=== PATIENT | male | born 1985 | race Caucasian/White ===

== ENCOUNTER 2020-09-18 14:10 | Emergency (ER) | payer BC ==
[2020-09-18] MEDS: Ketorolac 60 MG/2 ML SDV IM ONE (15:13)
[2020-09-18] MEDS: Orphenadrine 60 MG/2 ML Inj IM ONE (15:14)
--- NOTE | 2020-09-18 15:27 | EDM.PDOC ---
ED HPI GENERAL MEDICAL PROBLEM - General Chief Complaint: General Stated Complaint: Lower back pain Time Seen by Provider: 09/18/20 15:00 Source of Information: Reports: Patient History Limitations: Reports: No Limitations - History of Present Illness INITIAL COMMENTS - FREE TEXT/NARRATIVE: Lb is a 35 year old male who presents to ER with complaints of mid to low back pain. Was working on his tin roof yesterday repairing some screws. Noted the tin to be brissa and slipped. Did try to catch his footing on the ladder as he was unable to stop himself from sliding down the roof. Caught a foot on the ladder but fell about 8 feet to the ground. Landed on his butt and back and did hit his head. No loss of consciousness. Was ultimately with time able to get himself up from the ground. Was very stiff and sore yesterday but did continue to work in the tractor after. This am, continues to have back pain and stiffness. Difficult to stand or sit. No previous concerns with his back. Denies head pain today. Neck "a little stiff". No shortness of breath, chest discomfort, leg pain or weakness. 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 Lower Back Pain Score (Numeric/FACES): 4 - Related Data Allergies Allergy/AdvReac Type Severity Reaction Status Date / Time No Known Allergies Allergy Verified 09/18/20 14:15 Home Meds: Home Meds Cyclobenzaprine [Flexeril] 10 mg PO TID PRN #30 tab 09/18/20 [Rx] Hydrocodone/Acetaminophen [Hydrocodone-Acetamin 5-325 mg] 1 - 2 each PO Q6H #30 tablet 09/18/20 [Rx] Ibuprofen 400 mg PO ASDIRECTED 09/18/20 [History] Past Medical History - Past Health History Medical/Surgical History: Denies Medical/Surgical History Social & Family History - Family History Family Medical History: No Pertinent Family History - Tobacco Use Tobacco Use Status *Q: Never Tobacco User Second Hand Smoke Exposure: No - Caffeine Use Caffeine Use: Reports: None - Recreational Drug Use Recreational Drug Use: No ED ROS GENERAL - Review of Systems Review Of Systems: See Below Constitutional: Denies: Fever, Chills, Malaise, Weakness, Fatigue, Decreased Appetite HEENT: Denies: Ear Discharge, Ear Pain, Nosebleed, Sinus Problem, Vertigo, Vision Change Respiratory: Denies: Shortness of Breath, Cough Cardiovascular: Denies: Chest Pain, Edema, Lightheadedness Endocrine: Denies: Fatigue GI/Abdominal: Denies: Abdominal Pain, Nausea, Vomiting : Reports: No Symptoms Musculoskeletal: Reports: Back Pain Skin: Reports: No Symptoms Neurological: Denies: Headache Psychiatric: Reports: No Symptoms ED EXAM, GENERAL - Physical Exam Exam: See Below Exam Limited By: No Limitations General Appearance: Alert, WD/WN, Mild Distress Eye Exam: Bilateral Eye: EOMI, PERRL Ears: Normal External Exam, Normal TMs Nose: Normal Inspection, Normal Mucosa, No Blood Throat/Mouth: Normal Inspection, Normal Oropharynx Head: Normocephalic Neck: Normal Inspection, Supple, Non-Tender, Full Range of Motion Respiratory/Chest: No Respiratory Distress, Lungs Clear, Normal Breath Sounds Cardiovascular: Regular Rate, Rhythm GI/Abdominal: Normal Bowel Sounds, Soft, Non-Tender Back Exam: Normal Inspection, Decreased Range of Motion (Very limited range of motion due to pain), Paraspinal Tenderness, Vertebral Tenderness (T11-T12 point tenderness. ), Other (negative straight leg raise) Extremities: Normal Inspection, No Pedal Edema Neurological: Alert, Oriented Skin Exam: Warm, Dry Course - Vital Signs Last Recorded V/S: Last Vital Signs Temp 98.0 F 09/18/20 14:21 Pulse 86 09/18/20 14:21 Resp 18 09/18/20 14:21 BP 142/99 H 09/18/20 14:21 Pulse Ox 97 09/18/20 14:21 - Orders/Labs/Meds Meds: Medications Discontinued Medications Generic Name Dose Route Start Last Admin Trade Name Freq PRN Reason Stop Dose Admin Hydrocodone Bitart/Acetaminophen 2 packet 09/18/20 15:56 09/18/20 16:29 Take Home: Acetaminophen/Hydrocod, 2 Tab Pack PO 09/18/20 15:57 Not Given ONETIME ONE Hydrocodone Bitart/Acetaminophen 1 - 2 tab 09/18/20 16:02 [place] 325-5 Mg PO Q6H PRN Pain Hydrocodone Bitart/Acetaminophen 2 tab 09/18/20 16:04 [place] 325-5 Mg .ROUTE 09/18/20 16:05 .STK-MED ONE Cyclobenzaprine HCl 1 packet 09/18/20 15:56 09/18/20 16:29 Take Home: Cyclobenzaprine 10 Mg, 4 Tab Pack PO 09/18/20 15:57 Not Given ONETIME ONE Cyclobenzaprine HCl 40 mg 09/18/20 16:03 Flexeril .ROUTE 09/18/20 16:04 .STK-MED ONE Ketorolac Tromethamine 60 mg 09/18/20 15:06 09/18/20 15:13 Toradol IM 09/18/20 15:07 60 mg ONETIME ONE Administration Orphenadrine Citrate 60 mg 09/18/20 15:06 09/18/20 15:14 Norflex IM 09/18/20 15:07 60 mg ONETIME ONE Administration - Re-Assessments/Exams Free Text/Narrative Re-Assessment/Exam: 09/18/20 16:07 Is feeling somewhat better. Pain down to a 3. Awaiting radiology review of xray. Patient would like to be discharged and have us call him with results as would like to return home. Departure - Departure Time of Disposition: 16:11 Disposition: Home, Self-Care 01 Condition: Fair Clinical Impression: T12 compression fracture - Discharge Information *PRESCRIPTION DRUG MONITORING PROGRAM REVIEWED*: No *COPY OF PRESCRIPTION DRUG MONITORING REPORT IN PATIENT ANNY: No Prescriptions: Cyclobenzaprine [Flexeril] 10 mg PO TID PRN #30 tab PRN Reason: Muscle Spasm Hydrocodone/Acetaminophen [Hydrocodone-Acetamin 5-325 mg] 1 - 2 each PO Q6H #30 tablet Referrals: Nahum Thrasher PA-C [Primary Care Provider] - Forms: ED Department Discharge Additional Instructions: 1. Rest 2. Ice to back today, may alternate with heat 3. Flexeril 10 mg every 8 hours as needed for muscle spasms 4. Hydrocodone 5/325 1-2 tabs every 6 hours as needed for pain 5. We will call you with radiology report and determine further evaluation Sepsis Event Note (ED) - Evaluation Sepsis Screening Result: No Definite Risk
[2020-09-18] MEDS ORDERED: Acetaminophen/HYDROcodone 325-5 MG Tab PO PRN (16:02)
[2020-09-18] MEDS ORDERED: Cyclobenzaprine 10 MG Tab ONE (16:03)
[2020-09-18] MEDS ORDERED: Acetaminophen/HYDROcodone 325-5 MG Tab ONE (16:04)
[2020-09-18] MEDS: Take Home: Cyclobenzaprine 10 MG Tab, 4 Tab Pack PO ONE (16:29)
[2020-09-18] MEDS: Take Home: Acetaminophen/HYDROcodone 325-5 MG, 2 Tab Pack PO ONE (16:29)
== END 2020-09-18 16:20 | disposition home or self-care (01) ==
LOC: CC.ED 14:10
DX: S22.089A Unspecified fracture of T11-T12 vertebra, initial encounter for closed fracture (principal); W17.89XA Other fall from one level to another, initial encounter
CPT/HCPCS: 72110; 96372; 99283; A9270; J1885; J2360